=== PATIENT | male | born 1950 | race Caucasian/White ===

== ENCOUNTER 2022-06-02 06:31 | Emergency (ER) | payer OTHER, SELFPAY ==
[2022-06-02 06:36] VITALS: BP 151/90; PULSE 119; RESP 22; TEMP 36.6; O2SAT 98
--- NOTE | 2022-06-02 06:37 | W.ED.GENAD ---
Discharge Plan Disposition Condition: Good Discharge Details Chief Complaint: ETOHWithdr Clinical Impression: ETOH abuse, Alcohol withdrawal ED Provider: Ba Robbins Home Meds and New Rx's Prescriptions: No Action gabapentin 600 mg Tablet 600 mg PO BID acetaminophen 500 mg Tablet 1,000 mg PO BID apixaban 5 mg Tablet 5 mg PO BID vitamin B complex [B Complex] Capsule 1 cap PO DAILY Fish Oil Capsule 1 cap PO DAILY Vitamin D3 100 mcg (4,000 unit) Capsule 100 mcg PO DAILY Medical Decision Making This is an extremely pleasant 71-year-old male who [facility] with a past medical history of chronic back pain with a recent fall and reinjury of his back pain 1 to 2 weeks ago where he was [facility] and then recently discharged a few days ago, who presents today for intoxication. Patient states that he was discharged a few days ago and then last night he went to the [place] and for the sole purpose of drinking a lot. He denied any thoughts of suicide or harming himself or ending his life. He drank 1 gallon of scotch and 12 beers. He states he is also a regular drinker at baseline. He denies any vomiting or diarrhea. He does admit to tremulousness in his hands. He states that his last drink was less than an hour ago. He does have a history of DTs, but denies any seizure component. He denies any other medication use tonight. He denies any other past medical history. Patient is a new patient here, no medical records available currently. Physical exam demonstrates some mildly intoxicated male, no focal neurologic deficits, no symptoms concerning for cauda equina syndrome. We will gently rehydrate, give a banana bag and additional 100 mg of thiamine. He denies any falls or trauma. Physical exam shows no evidence of acute trauma. We will monitor closely and reassess. 7:51 AM Laboratory work-up stable, alcohol elevated at 220, patient feels like he is clinically withdrawing, although his CIWA score is only around 10-12 at this point. We will give a low-dose of Ativan. Patient is requesting to be admitted. We will reach out to the [facility] for transfer. Patient states that this is how his withdrawal usually begins. HPI General Date/Time Provider Initiated Documentation: 06/02/22 06:37. HPI Narrative: This is an extremely pleasant 71-year-old male who is a [facility] patient with a past medical history of chronic back pain with a recent fall and reinjury of his back pain 1 to 2 weeks ago where he was admitted to the [facility] and then recently discharged a few days ago, who presents today for intoxication. Patient states that he was discharged a few days ago and then last night he went to the [place] and for the sole purpose of drinking a lot. He denied any thoughts of suicide or harming himself or ending his life. He drank 1 gallon of scotch and 12 beers. He states he is also a regular drinker at baseline. He denies any vomiting or diarrhea. He does admit to tremulousness in his hands. He states that his last drink was less than an hour ago. He does have a history of DTs, but denies any seizure component. He denies any other medication use tonight. He denies any other past medical history. Patient is a new patient here, no medical records available currently. Related Data Home Medications Medication Instructions Recorded Confirmed acetaminophen 500 mg tablet 1,000 mg PO BID pain 06/02/22 06/02/22 apixaban 5 mg tablet 5 mg PO BID 06/02/22 06/02/22 cholecalciferol (vitamin D3) 100 100 mcg PO DAILY 06/02/22 06/02/22 mcg (4,000 unit) capsule gabapentin 600 mg tablet 600 mg PO BID 06/02/22 06/02/22 omega-3 fatty acids 1 cap PO DAILY 06/02/22 06/02/22 vitamin B complex 1 cap PO DAILY 06/02/22 06/02/22 Allergies Allergy/AdvReac Type Severity Reaction Status Date / Time enoxaparin [From Lovenox] AdvReac Intermediate Skin Rash Unverified 06/02/22 06:41 Sulfa (Sulfonamide AdvReac Unknown Unverified 06/02/22 06:41 Antibiotics) Review of Systems All systems reviewed & are unremarkable except as noted in HPI and below PFSH All Active Problems (Updated 06/02/22 @ 07:52 by Ba Robbins DO) ETOH abuse (Chronic) Alcohol withdrawal (Acute) Social History Smoking/Tobacco Use Status: Never Smoking risk assessment performed?: Yes Alcohol Intake: current Alcohol Intake frequency: 3 or more drinks per day Alcohol type: beer and hard liquor Drug use: Never Substance use type: does not use Do you feel safe at home: Yes Do you feel safe in your relationship?: Yes Exam Narrative Exam Narrative: 1.Const: Well-nourished, Well-developed, appearing stated age 2.Eyes: PERRL, no conjunctival injection, and symmetrical lids. 3.ENT: Atraumatic external nose and ears. Moist MM. Neck: Symmetric, trachea midline, No thyromegaly. 4.CVS: +S1/S2, No murmurs or gallops. Peripheral pulses 2+ and equal in all extremities. Brisk capillary refill in all extremities. 5.RESP: Unlabored respiratory effort. Clear to auscultation bilaterally. No wheezes rales or rhonchi 6.GI: Soft, Nontender/Nondistended, No hepatosplenomegaly. No guarding or rebound. 7.MSK: Normocephalic/Atraumatic, Extremities w/o deformity or ttp No cyanosis or clubbing, Normal movement of all extremities. No saddle anesthesia. Normal strength and movement of the lower extremities. 8.Skin: Warm, Dry. No rashes or lesions. 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 Sensation grossly intact, no focal neurologic deficits. Patient does appear mildly intoxicated 10.Psych: (AAO) x3. Appropriate mood and affect
[2022-06-02 07:02] LABS: Abs Immature Grans 0.06 10^3/uL (0.0-0.06); Absolute Basophil Count 0.02 10^3/uL (0.0-0.2); Absolute Lymphocyte Count 1.81 10^3/uL (1.2-3.4); Absolute Monocyte Count 1.19 10^3/uL (0.1-0.8); Basophils % 0.2; HCT 46.3 % (40.0-50.0); HGB 15.1 g/dL (13.5-17.5); Immature Grans % 0.5; Lymphocytes % 15.3; MCH 30.4 pg (27.0-33.0); MCHC 32.6 % (32.0-36.0); MCV 93 fL (80-95); MPV 9.5 fL (8.0-11.0); Monocytes % 10.1; Neutrophils % 73.9; Platelet Count 173 10^3/uL (130-400); RBC 4.97 10^6/uL (4.36-5.78); RDW 16.1 % (11.8-14.1); RDW-SD 55.4 fL; WBC 11.83 10^3/uL (4.4-10.8)
[2022-06-02 07:03] LABS: Absolute Neutrophil Count 8.74 10^3/uL (1.2-6.7)
[2022-06-02] MEDS: Normal Saline 1,000 ML 1000 ML IV (07:18)
[2022-06-02] MEDS: THIAMINE 100 MG in Normal Saline 100 ML 200 MG IVPB (07:18)
[2022-06-02 07:19] LABS: ALT 35 U/L (16-63); AST 31 U/L (15-37); Albumin 3.8 g/dL (3.4-5.0); Alkaline Phosphatase 158 U/L (46-116); Anion Gap 18.4 mmol/L (3-11); BUN 22 mg/dL (7-18); Bilirubin, Total 0.7 mg/dL (0.2-1.0); CO2 20.6 mmol/L (21.0-32.0); Calcium 8.8 mg/dL (8.5-10.1); Chloride 101 mmol/L (98-107); ETHANOL BLOOD 227.7 mg/dL (<10); Estimated GFR 80.47 (mL/min/1.73m2); Glucose 137 mg/dL (74-106); Lipase 16 U/L (16-77); Potassium 3.9 mmol/L (3.5-5.1); Sodium 140 mmol/L (136-145); Total Protein 8.6 g/dL (6.4-8.2)
[2022-06-02] MEDS: Ondansetron 4 MG/2 ML VIAL IVP (07:35)
[2022-06-02] MEDS: LORazepam 2 MG/ML VIAL IVP (07:50)
[2022-06-02] MEDS: MAGNESIUM SULFATE 8.12 MEQ, MULTIVITAMIN 10 ML, THIAMINE 100 MG, FOLIC ACID 1 MG in Nor... 168.867 MG IV (07:51)
--- NOTE | 2022-06-02 08:09 | W.EDPROG ---
Date of service: 06/02/22 Time of Service: 08:09 Medical Decision Making I received signout on this 71-year-old male who [facility]. [facility] in the setting of withdrawal from alcohol. He reports that he frequently binge drinks. Over the past 24 hours she has reportedly had 1 gallon of scotch and 12 beers. He arrived via EMS in the past several hours. His CIWA is reportedly 10-12. He has never had a seizure in the past from withdrawal from ethanol. He is on apixaban to prevent SVT. He has received some lorazepam. [facility] as the patient requests [facility]. Will treat with additional Librium PRN. 9:25 AM I spoke with the [facility] hospitalist team and received an accepting of Dr. Bibi Perrin. He requested that I send a COVID swab which I ordered along with a phosphorus level. I signed transfer paperwork and sent patient via a basic crew for transfer given concern for withdrawal. Discharge Plan Disposition Condition: Good Discharge Details Chief Complaint: ETOHWithdr Clinical Impression: ETOH abuse, Alcohol withdrawal Primary Care Provider: [facility],Local ED Provider: Shiraz Hernandez [place] Meds and New Rx's Prescriptions: No Action gabapentin 600 mg Tablet 600 mg PO BID acetaminophen 500 mg Tablet 1,000 mg PO BID apixaban 5 mg Tablet 5 mg PO BID vitamin B complex [B Complex] Capsule 1 cap PO DAILY Fish Oil Capsule 1 cap PO DAILY Vitamin D3 100 mcg (4,000 unit) Capsule 100 mcg PO DAILY
[2022-06-02 09:47] LABS: PHOSPHORUS 3.1 mg/dL (2.6-4.7)
[2022-06-02 10:03] VITALS: BP 114/62; PULSE 126; RESP 18; O2SAT 94
[2022-06-02 10:15] LABS: COVID-19 PCR Negative (Negative); Influenza A PCR Negative (Negative); Influenza B PCR Negative (Negative); RSV PCR Negative (Negative)
[2022-06-02 10:20] LABS: Source Nasopharynx
[2022-06-02] MEDS: Ondansetron 4 MG/2 ML VIAL (10:24)
--- NOTE | 2022-06-02 10:28 | NUR.NOTE ---
Nursing Note:Pt medicated IV zofran for c/o nausea [facility] to [facility], [facility] and [facility]. IVF d/c'd prior to transfer, pt able to transfer self from stretcher to ambulance stretcher.
[2022-06-02 10:30] VITALS: BP 114/62; PULSE 126; RESP 18; TEMP 36.9; O2SAT 94
== END 2022-06-02 10:32 ==
PROVIDERS: Student in an Organized Health Care Education/Training Program; Emergency Provider Emergency Medicine
DX: F10.139 Alcohol abuse with withdrawal, unspecified (principal); Y90.7 Blood alcohol level of 200-239 mg/100 ml; Z20.822 Contact with and (suspected) exposure to COVID-19
CPT/HCPCS: 80053; 83690; 87637; 96361; 96365; 96375; 99284; 80320; 84100; 85025; J2060; J2405